=== PATIENT | female | born 1985 | race Caucasian/White ===

== ENCOUNTER 2022-05-25 21:57 | Emergency (ER) | payer OTHER ==
[~2022-05-25] VITALS: Ht 167.6 cm; Wt 104.5 kg
[~2022-05-25 21:57] MED LIST: BENTYL 20MG20 MG/TAB PO
[2022-05-25 22:01] VITALS: TEMP 97.5
[2022-05-25 22:24] LABS: BASO # 0.1 K/mm3 (0.0-0.2); BASO % 0.5 % (0.0-2.0); EOS # 0.1 K/mm3 (0.0-0.7); EOS % 0.6 % (0.0-4.0); GRAN # 10.3 K/mm3 (1.4-6.5); GRAN % 68.4 % (42.2-75.2); HEMATOCRIT 37.2 % (37.0-47.0); HEMOGLOBIN 11.9 g/dl (12.5-16.0); LYMPH # 3.8 K/mm3 (1.2-3.4); LYMPH % 25.1 % (20.0-51.0); MEAN CELL VOLUME 89 fl (80.0-100.0); MEAN CORPUSCULAR HEMOGLOBIN 29 pg (27-31); MEAN CORPUSCULAR HGB CONC 32 g/dl (33.0-37.0); MEAN PLATELET VOLUME 10.4 fl (7.4-10.4); MONO # 0.7 K/mm3 (0.1-0.6); MONO % 4.9 % (1.7-9.3); PLATELET COUNT 334 K/mm3 (130-400); RED BLOOD COUNT 4.17 M/mm3 (4.10-5.30); REDCELL DISTRIBUTION WIDTH-CV 14.4 % (11.5-14.5)
[2022-05-25 22:36] LABS: ALBUMIN 3.7 gm/dL (3.5-5.0); BILIRUBIN,TOTAL 0.5 mg/dL (0.2-1.2); C-REACTIVE PROTEIN 0.08 mg/dL (0.00-0.50); CALCIUM 8.5 mg/dL (8.4-10.2); CREATININE, serum 0.71 mg/dL (0.57-1.11); POTASSIUM 3.7 mmol/L (3.5-4.5); TOTAL PROTEIN 6.9 gm/dL (6.2-8.1)
[2022-05-26] MEDS ORDERED: ZOFRAN 4MG T4 MG/TAB PO (00:03)
[2022-05-26 00:34] VITALS: BP 113/77; PULSE 65
== END 2022-05-26 00:39 | disposition home or self-care (01) ==
LOC: COL.ER 21:57
PROVIDERS: Emergency Medicine
DX: R10.11 Right upper quadrant pain (principal); D72.829 Elevated white blood cell count, unspecified; R74.01 Elevation of levels of liver transaminase levels
CPT/HCPCS: J2270; J2405; J7030; Q9967

== ENCOUNTER → 2022-05-28 | Outpatient (CLI) | payer OTHER ==
[~2022-05-28] MED LIST changes: +ZOFRAN 4MG T4 MG/TAB PO
== END ==
LOC: COL.RAD 05:45
DX: R10.9 Unspecified abdominal pain (principal)